=== PATIENT | female | born 1960 | race Caucasian/White ===

== ENCOUNTER 2018-09-07 06:10 | Day surgery (SDC) | payer OTHER ==
[2018-09-06 18:17] VITALS: BMI 26.9
[2018-09-07 06:27] LABS: HEMATOCRIT 42.2 % (32.4-45.2); HEMOGLOBIN 14.6 GM/dL (10.7-15.3); MCH 34.6 pg (25.7-33.7); MCHC 34.5 g/dl (32.0-36.0); MEAN CELL VOLUME 100.2 fl (80-96); MEAN PLT VOLUME 7.8 fl (7.5-11.1); PLATELET COUNT 83 K/MM3 (134-434); RBC 4.21 M/mm3 (3.60-5.2); RDW 15.4 % (11.6-15.6)
[2018-09-07] MEDS ORDERED: DEXAMETHASONE SOD PHOSPHATE 4 MG/1 ML VIAL ONE ×2 (07:25→07:30)
[2018-09-07] MEDS ORDERED: BUPIVACAINE HCL/PF 0.5% (5MG/ML) 10 ML VIAL ONE (07:25)
[2018-09-07] MEDS ORDERED: PROPOFOL 20 ML ONE ×6 (07:25→09:58)
[2018-09-07] MEDS ORDERED: LIDOCAINE HCL 2% (20ML MULTI-DOSE VIAL) NR ONE (07:25)
[2018-09-07] MEDS ORDERED: SUCCINYLCHOLINE CHLORIDE 200 MG/10 ML SYRINGE ONE (07:25)
[2018-09-07] MEDS ORDERED: BENZOIN TINCTURE SWABSTICK TP ONE (07:25)
[2018-09-07] MEDS ORDERED: MIDAZOLAM HCL 2 MG/2 ML SINGLE DOSE VIAL ONE ×2 (07:26→08:29)
[2018-09-07] MEDS ORDERED: LIDOCAINE HCL/PF 2% SDV 5ML VIAL ONE (07:30)
[2018-09-07] MEDS ORDERED: SODIUM CHLORIDE 0.9% P/F 10 ML VIAL IJ ONE (07:30)
[2018-09-07] MEDS ORDERED: BUPIVACAINE HCL/PF (5 MG/ML) 30 ML VIAL IJ ONE (07:30)
[2018-09-07] MEDS ORDERED: LIDOCAINE HCL 2% (50ML VIAL) INF ONE (07:30)
[2018-09-07] MEDS ORDERED: ceFAZolin SODIUM 1 GM VIAL ONE (07:30)
[2018-09-07] MEDS ORDERED: DEXMEDETOMIDINE HCL 200 MCG/2 ML IVPB ONE (07:31)
[2018-09-07] MEDS ORDERED: ceFAZolin SODIUM 1 GM VIAL IVPB ONE (07:44)
[2018-09-07] MEDS ORDERED: ePHEDrine SULFATE 50 MG/1 ML AMPULE ONE (08:36)
[2018-09-07] MEDS ORDERED: ACETAMINOPHEN 1000 MG/100 ML VIAL (NON FORMULARY) IVPB ONE ×2 (12:15→12:17)
[2018-09-07] MEDS ORDERED: ACETAMINOPHEN INJECTION 100 ML IVPB ONE (12:17)
[2018-09-07] MEDS ORDERED: ONDANSETRON 4 MG/2 ML VIAL IVPUSH PRN (12:17)
[2018-09-07] MEDS ORDERED: oxyCODONE HCL 5 MG TABLET PO PRN (12:17)
[2018-09-07] MEDS ORDERED: oxyCODONE HCL 5 MG TABLET ONE (13:11)
[2018-09-07 15:27] VITALS: BP 116/64; PULSE 73; TEMP 97.9
--- NOTE | 2018-09-10 11:09 | PATH ---
Surgical Pathology Report Patient Name: RUBEN KAHN [facility]. Rec. #: [id number] /Age/Gender: 1960 (Age: 58) / F Account: [id number] Location: [facility] Taken: 09/07/2018 Received: 09/07/2018 Reported: 09/10/2018 Physicians: Chas Branham DPM Specimen(s) Received BONE 1ST METATARSAL LEFT FOOT Clinical History Bunion left foot Final Diagnosis BONE, LEFT FIRST METATARSAL, BUNIONECTOMY: BONE WITH REACTIVE CHANGES CONSISTENT WITH BUNION. Electronically Signed Telly Hernandez M.D. Gross Description Received in formalin labeled "left foot bone first metatarsal," are 3 loredo-yellow, irregular bone fragments ranging from 0.5 x 0.3 x 0.1 cm to 1.5 x 1.3 x 0.3 cm. Outreach Clinician sections are submitted in one cassette, following decalcification. /09/07/2018 saudi09/07/2018
--- NOTE | 2018-09-10 21:18 | OP ---
DATE OF OPERATION: 09/07/2018 PREOPERATIVE DIAGNOSIS: Painful left foot hallux abductovalgus deformity. POSTOPERATIVE DIAGNOSIS: Painful left foot hallux abductovalgus deformity. SURGEON: Chas Branham DPM ANESTHESIA: Local with MAC. PROCEDURE: 1. Left foot Ga bunionectomy with modified Bangura. 2. Left foot Layered closure. 3. Left foot Bronson osteotomy. HEMOSTASIS: Pneumatic ankle tourniquet set at 250 mmHg. ESTIMATED BLOOD LOSS: Minimal. PATHOLOGY: Bone and soft tissue. MATERIALS: 2.0 x 14-mm Osteomed screw, 0.062-inch K wire x2, 2-0 Vicryl, 4-0 Vicryl, and 5-0 nylon. INJECTABLES: Preoperatively, 20 mL of a 1:1 mixture of 1% lidocaine plain and 0.5% Marcaine plain. COMPLICATIONS: None. CONDITION: Stable. DESCRIPTION: Patient was brought to the operating room and placed on the operating table in the supine position. A well-padded pneumatic ankle tourniquet was then placed on the patient's left ankle. Following IV sedation, local anesthesia was obtained utilizing 20 mL of a 1:1 mixture of 0.5% Marcaine plain and 1% lidocaine plain. The left foot was then scrubbed, prepped and draped in the usual aseptic manner. An Esmarch bandage was then utilized to exsanguinate the patient's left foot. The tourniquet was then inflated. An approximately 4 cm linear longitudinal incision was made dorsomedially over the 1st metatarsophalangeal joint, medial and parallel to the tendon of the extensor hallucis longus. The incision was then deepened through the subcutaneous tissue, to the level of the capsule, using sharp and blunt dissection. Care was taken to identify and retract all vital neuro and vascular structures. All bleeders were ligated and cauterized as necessary. The capsule was then visualized and a linear capsulotomy was performed. The periosteal and capsular structures were then carefully dissected free and reflected medially and laterally, thus exposing the head of the 1st metatarsal. Utilizing a sagittal saw, the medial prominence of the 1st metatarsal head was then resected and passed from the operative field. The hip was then externally rotated and the knee flexed so that the medial surface of the foot faced superior for better visualization of the Ga procedure. A [id number] V-type osteotomy was then created utilizing a sagittal bone saw, with the apex pointing distally and the dorsal arm slightly longer than the plantar arm to accommodate fixation. The capital fragment was then shifted laterally into an improved position and was then impacted on the head of the metatarsal shaft. A 0.062-inch K wire was then driven across the osteotomy site for temporary fixation, and another K wire from the Osteomed set was then driven across the osteotomy site and placement was confirmed under fluoroscopy. Next, a 2.0 x 14 mm screw was then inserted across the osteotomy site using standard AO technique, providing excellent compression and fixation. Position of the screw was confirmed under fluoroscopy and was noted to be in excellent position. Both K wires were then removed and passed from the operative field. At this time, the osteotomy was examined and was noted to be slightly loose, so the decision was taken to drive a 0.062-inch K wire directly across the osteotomy site from proximal medial to distal lateral. At this time , the K wire was bent at the proximal end and a K-wire cap was placed, and the rigidness to the osteotomy site was noted to be vastly improved. All rough edges of bone were then resected and smoothed using power equipment, and the bunion deformity was noted to be vastly improved. At this time, it was noted that the hallux was still in a slightly laterally deviated position, so it was elected to perform an Bronson osteotomy for a more rectus appearance of the digit. After further sharp and blunt dissection was carried out distally, retracting all neurovascular components, the head of the proximal phalanx of the hallux was then exposed and closing wedge osteotomy was performed, with the apex pointing laterally utilizing a sagittal saw. The wedge of bone was removed and the osteotomy site was compressed. A 0.045-inch K wire was then inserted across the osteotomy site from distal medial to proximal lateral direction using standard AO technique for temporary fixation, and at this point, a 0.062- inch K wire was driven across the osteotomy site in a similar fashion. The 0.045-inch K wire was then removed and the distal aspect of the 0.062-inch K wire was then bent and cut and the K wire cap was placed. At this time, a medial capsulorrhaphy was then performed to further enhance the correction. The surgical site was then flushed with copious amounts of sterile saline, and the periosteal and capsular structures were then reapproximated using 2-0 Vicryl. Remaining capsular tissue was resected as needed and the subcutaneous tissue was then closed with 4-0 Vicryl. Skin edges were then coapted using 5-0 nylon. A postoperative injection was then infiltrated to the surgical site consisting of 10 mL of an 8:2 mixture of 0.5% marcaine and Decadron. Xeroform was applied to the surgical incision site and covered with a sterile compressive dressing consisting of 4 x 4's and Quoc. At this time, the tourniquet to the left foot was released, and immediate hyperemia returned to all digits of the left foot. At this time, Coban was used to secure the dressing. The patient tolerated the procedure and anesthesia well with no complications and was transported from the operating room to the recovery room with all vital signs stable and neurovascular status intact to the left lower extremity. Following a period of postoperative monitoring, the patient was discharged and given instructions and prescriptions which were discussed prior to the surgery. The patient will follow up in private office in 1 week. JIMMIE ROSADO/[id number] MTDD
== END 2018-09-07 14:38 | disposition home or self-care (01) ==
LOC: JASU-SURG 06:10
PROVIDERS: ATTEND Podiatrist
PROC: 0QSP04Z Reposition Left Metatarsal with Internal Fixation Device, Open Approach (ICD-10-PCS; principal; 2018-09-07 07:30)
DX: M20.12 Hallux valgus (acquired), left foot (principal); M21.612 Bunion of left foot
CPT/HCPCS: 36415; 73610-TC-LT-FY; 73630-TC-LT; 76000-TC-FY; 85027; 88304-TC; 88311-TC; 94760; 97116-GP; J0131